=== PATIENT | female | born 1955 | race Caucasian/White ===

== ENCOUNTER 2022-11-14 20:21 | Outpatient (CLI) | payer OTHER, SELFPAY | END 2022-11-14 20:22 | disposition home or self-care (01) | PROVIDERS: PCP Physician Assistant; Visit Provider Family Medicine | DX: R41.82 Altered mental status, unspecified (principal) | CPT/HCPCS: A0425; A0427 ==

== ENCOUNTER 2023-07-27 12:55 | Emergency (ER) | payer OTHER, SELFPAY ==
[2023-07-27 13:01] VITALS: BP 174/86; PULSE 103; RESP 18; TEMP 37.3; O2SAT 97; BMI 20.7
[2023-07-27 13:43] LABS: Appearance Urine Clear (Clear); Bilirubin Urine Negative (Negative); Blood Urine Negative (Negative); Color Urine Yellow (Yellow); Glucose Urine Negative (Negative); Ketones Urine Negative (Negative); Leukocyte Esterase Urine Negative (Negative); Nitrite Urine Negative (Negative); Protein Urine Negative (Negative); Urobilinogen Urine 0.2 (0.2-1.0)
[2023-07-27 14:03] LABS: RBC Urine 0-2 (0-2); WBC Urine 0-2 (0-5)
--- NOTE | 2023-07-27 14:45 | CRLHL7_ITS ---
For Patients: As a result of the Century Cures Act, medical imaging exams and procedure reports are released immediately into your electronic medical record. You may view this report before your referring provider. If you have questions, please contact your health care provider. INDICATION: Periumbilical with right lower quadrant pain. History of and bilateral hernia repair. TECHNIQUE: CT of the abdomen and pelvis with 57 cc Isovue 370 IV contrast. Coronal and sagittal reconstructions. COMPARISON: None. FINDINGS: The liver, gallbladder, spleen, and adrenal glands are negative. No biliary dilation. Mild prominence of the pancreatic duct. The pancreas is otherwise unremarkable. Hepatic and portal veins are patent. Symmetric enhancement of the kidneys. Bilateral renal cortical scarring. Subcentimeter bilateral renal hypodensities are too small to characterize. Prominent bilateral extrarenal pelves. No hydronephrosis or ureteral dilation. No obstructing urinary calculi identified. The bladder is normal in appearance. Uterus is unremarkable. There is a 2.1 cm cystic lesion in the left adnexa (series 2, image 93). Wall thickening of the gastric antrum is likely inflammatory. No small bowel dilation. Large amount of stool throughout the colon. Segmentally visualized negative appendix (series 2, image 105). No intraperitoneal free air or fluid. No lymphadenopathy. Aortoiliac vascular calcifications. Left convex lumbar curve. Degenerative changes of the spine. Chronic appearing inferior endplate compression fracture of L1. Subacute fractures of the right posterior 9th-12th ribs with callus formation. Subacute fracture of the right anterior 6th rib. Additional old bilateral rib fractures. Old bilateral pubic rami fractures. Acute appearing nondisplaced fracture of the right T9 transverse process. The lung bases are clear. IMPRESSION: 1. Multiple subacute right rib fractures. 2. Acute appearing nondisplaced fracture of the right T9 transverse process 3. Large amount of stool. Segmentally visualized negative appendix. 4. Wall thickening of the gastric antrum is likely inflammatory. 5. 2.1 cm left adnexal cyst. Please note that all CT scans at this facility use dose modulation, iterative reconstruction, and/or weight-based dosing when appropriate to reduce radiation dose to as low as reasonably achievable. Dictated by Rajwinder Fernandes MD @ 07/27/2023 6:06:08 PM (Electronically Signed)
--- OUTSIDE RECORDS SUMMARY | 2023-07-27 14:59 | XMS_ITS | Continuity of Care Document ---
Author Name Unknown Organization [facility] Address [address] [place] [address] Phone Care Team Providers Care Systems Administration Analyst Name Role Phone Kimberly CONCEPCIONAriel Unavailable Unavailable Allergies, Adverse Reactions, Alerts Substance Reaction Status Criticality No Known Allergies Active No Inform ation Medications Medication Instructions Dosage Effective Dates (start - stop) Status Comments furosemide 20 mg tablet Take 1 Tablet (2 0 mg) by mouth once daily if needed (peripheral edema). - Active butalbital-acetaminophe n-caffeine 50 mg-325 mg-40 mg tablet Take 1 Tablet by mouth every 4 hours if needed for Headache. Max 6 doses per day. Max acetaminophen dose 4000mg in 24 hrs. - Active trazodone 100 mg tablet Take 1 Tablet (1 00 mg) by mouth at bedtime. - Active ondansetron [address] 1 Tablet (4 mg) on the tongue every 8 hours if needed for Nausea/Vomiting. - Active atorvastatin 10 mg tablet Take 1 Tablet (10 mg) by mouth at bedtime. - Active buspirone 10 mg tablet Take 1 Tablet (10 mg) by mouth 2 times daily. - Active Poly-Vi-Faye with Iron 11 mg iron/mL oral drops Take 1 Tablet (325 mg) by mouth once daily with a meal. - Active fluoxetine 20 mg capsule Take 1 Capsule (20 mg) by mouth every morning. - Active fluticasone propionate 50 mcg/actuation nasal spray,suspension Inhale 1 [place] to both nostrils once daily. - Active lisinopril 20 mg tablet Take 1 Tablet (2 0 mg) by mouth once daily. - Active loratadine 10 mg tablet Take 1 Tablet (1 0 mg) by mouth once daily. - Active montelukast 10 mg tablet Take 1 Tablet (10 mg) by mouth at bedtime. - Active sumatriptan 100 mg tablet Take 1 Tablet (100 mg) by mouth every 2 hours if needed for Migraine. Give at minimum 2hrs apart. Max Dose: 200mg per 24hrs. - Active topiramate 100 mg tablet Take 1 Tablet (100 mg) by mouth 2 times daily. - Active Stimulant Laxative Plus 8.6 mg-50 mg tablet Take 1 Tablet by mouth 2 times daily if needed for Constipation. - Active Restasis 0.05 % eye drops in a dropperette Place 1 Drop into both eyes 2 times daily. - Active MS Contin 30 mg tablet,extended release take 1 tablet by oral route every 12 hours 30 MG - Active oxycodone 10 mg tablet take 1 tablet by oral route every 20 - 24 hours 10 MG - Active Procedures Procedure Date OFFICE/OUTPATIENT VISIT, EST OFFICE/OUTPATIENT VISIT, EST Drug Urine Toxology With Chromatography Drug test def 1-7 classes OFFICE/OUTPATIENT VISIT, NEW PT-FOCUSED HLTH RISK ASSMT Advance Directives Directive Yes / No Effective Date File Name No Information Encounters Encounter Description Practice Location Reason(s) For Visit Diagnoses Date Provider Providers Copied on Encounter [facility], [address] [place], [id number] , [place] tel:[phone] [facility] [place] No Information 2 Kimberly George. [facility], [place], [id number] , [place]. tel: [phone] OFFICE/OUTPA TIENT VISIT, EST [facility], [address] [place], [place], [id number] , [place] tel: [phone] [facility] Back Pain (chief complaint) Chronic pain syndromeOther intervertebral disc degeneration, lumbar regionRadiculopathy , cervical regionRadiculopathy of lumbar regionOsteoporosisO ther nursing home (current) drug therapy 2 Kimberly George. [address] [place] [address] [address], [place], [place], [id number] , [place]. tel: [phone] Referring Provider: Keeley Garvey, [address], [address]. tel:[phone] [facility], [address] [place], [place], [id number] , [place] tel: [phone] [facility] No Information 2 Kimberly George. [address] [place] [address] [address], [place], [place], [id number] , [place]. tel: [phone] OFFICE/OUTPA TIENT VISIT, [facility], [address] [place] [address], [id number] , [place] tel: [phone] [facility] Back Pain (chief complaint) Chronic pain syndromeRadiculopat hy of lumbar regionOther adjunct faculty for medical terminology (current) drug therapyRadiculopath y, cervical regionOther intervertebral disc degeneration, lumbar regionOsteoporosis 2 Kimberly George. [address] [place] [address] [address], [place], [place], [id number] , [place]. tel: [phone] Referring Provider: Keeley Garvey, [address], [address]. tel:[phone] [facility], [address] [place], [place], [id number] , [place] tel: [phone] [facility] No Information 2 Kimberly George. [address] [place] [address] [address] [facility] [address], [place], [id number] , [place]. tel: [phone] Referring Provider: Gerry Burden, [address] [place], [address] . tel:[phone] OFFICE/OUTPA TIENT VISIT, [facility], [address] [place], [id number] , [place] tel: [phone] [facility] [place] Back Pain (chief complaint) Chronic pain syndromeOther adjunct faculty for medical terminology (current) drug therapyEncounter for therapeutic drug level monitoringEncounter for screening for other disorderRadiculopat hy of lumbar regionRadiculopathy , cervical regionOther intervertebral disc degeneration, lumbar regionOsteoporosis 2 Kimberly George. [address] [place] [address] [address] [facility] [address], [place], [id number] , [place]. tel: [phone] Referring Provider: Keeley Garvey, [address], [address]. tel:[phone] Family History Family Member Type Diagnosis Age At Onset Problem Family history of Arthritis Payers Payer name Insurance type Covered green party ID Authoriza lamont(s) [employer] Medicare PPO Replacement 16 [id number] Social History Type Description Quantity Date Captured Comments Sex Female Smoking Status No Information Chief Complaint And Reason For Visit No Information Reason For Referral Reason For Referral No Information Plan Of Treatment Date Type Action Status Goal Zoster vaccine ( 1st). Due on due Goal Unhealthy drug u se screening. Due on due Goal Lipid panel. Due on 022 due Goal Hepatitis C scre ening. Due on due Goal FIT-DNA. Due on due Goal FIT. Due on due Goal CT-Colonography. Due on due Goal PHQ-9. Due on du e Goal Weight. Due on d ue Goal Tobacco Use. Due on due Goal Height. Due on d ue Goal Update Social Hi story. Due on due Goal Review Allergy L ist. Due on due Goal Medication Recon ciliation. Due on due Goal Height. Due on d ue Goal Tobacco Use. Due on due Goal Review Allergy L ist. Due on due Goal Weight. Due on d ue Goal Medication Recon ciliation. Due on due Goal Update Social Hi story. Due on due Goal PHQ-9. Due on du e Goal Update Social Hi story. Due on due Goal PHQ-9. Due on du e Goal Medication Recon ciliation. Due on due Goal Weight. Due on d ue Goal Height. Due on d ue Goal Tobacco Use. Due on due Goal Review Allergy L ist. Due on due Goal Medication Recon ciliation. Due on due Goal Weight. Due on d ue Goal Height. Due on d ue Goal Tobacco Use. Due on 022 due Goal Review Allergy L ist. Due on due Goal PHQ-9. Due on du e Goal Update Social Hi story. Due on due Appointment Reshma Field SEE DETAILS RONNELL KC Future Order: Radiology Order MR Lumbar WO ([id number]), Ordered on: Ordered Future Order: Radiology Order MR Cervical WO ([id number]), Ordered on: Ordered History Of Present Illness Encounter Date Complaint History Of Prese nt Illness Comments: Reshma presents for follow-up regarding lower back pain. Reports secondary neck pain that is currently most bothersome. Reports pain has been fluctuating since [place]. Notes some radiation into R leg with associated leg swelling. Interested in updating cervical and lumbar MRIs.Of note, she is currently her 's primary caregiver, which causes stress.Patient states she is currently managing her pain on oxycodone 10mg BID PRN and morphine ER 30mg BID, prescribed and managed by Keeley JAVIER.Continues to utilize medical cannabis with 60% pain relief. She is not accompanied and has no other concerns today. Back Pain Severity level i s 6. Duration: chronic. The problem is fluctuating. It occurs persistently. The client describes the pain as an ache, burning and tingling. Symptoms are aggravated by ascending stairs, bending, descending stairs, sitting, standing, walking, prolonged positioning and housework. Symptoms are relieved by heat, ice, massage, pain meds/drugs, stretching, rest, changing positions, TENS and walking. Back Pain Duration: chroni c. The problem is stable. It occurs persistently. Location of pain is lower back.The patient describes the pain as an ache, burning and sharp. Symptoms are aggravated by bending, lifting, standing, twisting, walking, movement, housework and prolonged positioning. Symptoms are relieved by pain meds/drugs and rest. Back Pain (comments) Reshma prese nts for initial follow-up regarding lower back pain. States pain has been unchanged in location, quality, and character since initial consult. Presents primarily to discuss medical cannabis certification. She states she has not heard from the MD. Patient states she is currently managing her pain on oxycodone 15mg TID, prescribed and managed by Keeley JAVIER. Inquires about recommendations regarding a long-acting opiate as OxyContin is too expensive. She is not accompanied and has no other concerns today. Back Pain Severity level i s 8. Duration: chronic. Location of pain is lower back and neck.The patient describes the pain as an ache, deep, sharp and throbbing. Symptoms are aggravated by ascending stairs, bending, descending stairs, lifting, lying/rest, running, sitting, standing, twisting, movement, housework and prolonged positioning. Symptoms are relieved by heat, lying down, massage, pain meds/drugs, physical therapy, stretching, sitting, standing, walking and TENS. Back Pain (comments) Reshma is he re for initial consult for neck and back pain. She is referred by Keeley JAVIER through [facility]. The patient is a 66y/o female who presents with chronic neck and back pain for the past 25+ years. Denies inciting injury or past surgeries. Pain is described as aching, deep, sharp, and throbbing. Pain averages 8/10. The patient is currently managed on Morphine 30mg ID and oxycodone 10mg 1tab/day with moderate benefit.Patient is interested in pain management options through [facility]. Specifically expresses interest in medical cannabis certification. She is not accompanied and has no other concerns today. Functional Status Date Functional Assessmen t No Information Instructions Date Instruction Additional Infor mation No Information Assessments Type Assessment Date No Information Patient Care Teams Name Effective Dates (start - stop) Status Members No Information
--- OUTSIDE RECORDS SUMMARY | 2023-07-27 15:01 | XMS_ITS | Continuity of Care Document ---
Author Name Unknown Organization [facility] Address [address] [place] [address] Phone Care Team Providers Care Project Architect Name Role Phone Kimberly CONCEPCIONAriel Unavailable Unavailable [...] propionate 50 mcg/actuation nasal spray,suspension Inhale 1 [place] to both nostrils once daily. - Active [...] Diagnoses Date Provider Providers Copied on Encounter [facility], [address] [facility] [place], [id number] , [place] tel:[phone] [facility] [place] No Information 2 Kimberly George. [facility] [facility] [address], [place], [id number] , [place]. tel: [phone] OFFICE/OUTPA TIENT VISIT, EST [facility], [address] [place], [place], [id number] , [place] tel: [phone] [facility] Back Pain (chief complaint) Chronic pain syndromeOther intervertebral disc degeneration, lumbar regionRadiculopathy , cervical regionRadiculopathy of lumbar regionOsteoporosisO ther custodial (current) drug therapy 2 Kimberly George. [address] [place] [address] [address], [place], [place], [id number] , [place]. tel: [phone] Referring Provider: eKeley Garvey, [address], [address]. tel:[phone] [facility], [address] [place], [place], [id number] , [place] tel: [phone] [facility] No Information 2 Kimberly George. [address] [place] [address] [address], [place], [place], [id number] , [place]. tel: [phone] OFFICE/OUTPA TIENT VISIT, [facility], [address] [place] [address], [id number] , [place] tel: [phone] [facility] Back Pain (chief complaint) Chronic pain syndromeRadiculopat hy of lumbar regionOther intermission coordinator (current) drug therapyRadiculopath y, cervical regionOther intervertebral disc degeneration, lumbar regionOsteoporosis 2 Kimberly George. [address] [place] [address] [address], [place], [place], [id number] , [place]. tel: [phone] Referring Provider: Keeley Garvey, [address], [address]. tel:[phone] [facility], [address] [place], [place], [id number] , [place] tel: [phone] [facility] No Information 2 Kimberly George. [address] [place] [address] [address] [facility] [address], [place], [id number] , [place]. tel: [phone] Referring Provider: Gerry Burden, [address] [place], [address] . tel:[phone] OFFICE/OUTPA TIENT VISIT, [facility], [address] [place] [address] [place], [place], [id number] , [place] tel: [phone] [facility] [place] Back Pain (chief complaint) Chronic pain syndromeOther intermission coordinator (current) drug therapyEncounter for therapeutic drug level monitoringEncounter for screening for other disorderRadiculopat hy of lumbar regionRadiculopathy , cervical regionOther intervertebral disc degeneration, lumbar regionOsteoporosis 2 Kimberly George. [address] [place] [address] [address] [facility] [address], [place], [id number] , [place]. tel: [phone] Referring Provider: Keeley Garvey, [address], [address]. tel:[phone] Family History Family Member Type Diagnosis Age At Onset Problem Family history of Arthritis Payers Payer name Insurance type Covered democrat ID Authorzacka samirsasha(s) [employer] Medicare PPO Replacement 16 [id number] Social History Type Description Quantity Date Captured Comments Sex Female Smoking Status No Information Chief Complaint And Reason For Visit No Information Reason For Referral Reason For Referral No Information Plan Of Treatment Date Type Action Status Goal Medication Recon ciliation. Due on due Goal Review Allergy L ist. Due on due Goal Update Social Hi story. Due on due Goal Height. Due on d ue Goal Tobacco Use. Due on 022 due Goal Weight. Due on d ue Goal PHQ-9. Due on du e Goal CT-Colonography. Due on due Goal FIT. Due on due Goal FIT-DNA. Due on due Goal Hepatitis C scre ening. Due on due Goal Lipid panel. Due on due Goal Unhealthy drug u se screening. Due on due Goal Zoster vaccine ( ). Due on due Goal PHQ-9. Due on du e Goal Update Social Hi story. Due on due Goal Medication Recon ciliation. Due on due Goal Weight. Due on d ue Goal Height. Due on d ue Goal Tobacco Use. Due on due Goal Review Allergy L ist. Due on due Goal PHQ-9. Due on du e Goal Update Social Hi story. Due on due Goal Medication Recon ciliation. [...] Date Complaint History Of Prese nt Illness Back Pain Severity level i s 6. Duration: chronic. The problem is fluctuating. It occurs persistently. The client describes the pain as an ache, burning and tingling. Symptoms are aggravated by ascending stairs, bending, descending stairs, sitting, standing, walking, prolonged positioning and housework. Symptoms are relieved by heat, ice, massage, pain meds/drugs, stretching, rest, changing positions, TENS and walking. Comments: Reshma presents for follow-up regarding lower [...] 30mg BID, prescribed and managed by Keeley [place] PAC.Continues to utilize medical cannabis with 60% pain relief. She is not accompanied and has no other concerns today. Back Pain (comments) Reshma prestameka nts for initial follow-up regarding lower back pain. States pain has been unchanged in location, quality, and character since initial consult. Presents primarily to discuss medical cannabis certification. She states she has not heard from the [facility]. Patient states she is currently managing her pain on oxycodone 15mg TID, prescribed and managed by Keeley [place] PAC. Inquires about recommendations regarding a long-acting opiate as OxyContin is too expensive. She is not accompanied and has no other concerns today. Back Pain Duration: chroni c. The problem is stable. It occurs persistently. Location of pain is lower back.The patient describes the pain as an ache, burning and sharp. Symptoms are aggravated by bending, lifting, standing, twisting, walking, movement, housework and prolonged positioning. Symptoms are relieved by pain meds/drugs and rest. Back Pain Severity level i s 8. [...] She is referred by Keeley JAVIER through [facility]. The patient is a 66y/o female who presents with chronic neck and back pain for the past 25+ years. Denies inciting injury or past surgeries. Pain is described as aching, deep, sharp, and throbbing. Pain averages 8/10. The patient is currently managed on Morphine 30mg ID and oxycodone 10mg 1tab/day with moderate benefit.Patient is interested in pain management options through [facility]. Specifically expresses interest in medical cannabis certification. She is not accompanied and has no other concerns today. Functional Status Date Functional Assessmen t No Information Instructions Date Instruction Additional Infor mation No Information Assessments Type Assessment Date No Information Patient Care Teams Name Effective Dates (start - stop) Status Members No Information
[2023-07-27 15:18] LABS: Basophils Percent Auto 0.2 % (0.0-3.0); Eosinophils Percent Auto 0.2 % (0.0-7.0); Hematocrit 45.8 % (33.0-51.0); Hemoglobin* 15.2 gm/dL (12.0-16.0); Lymphocytes Percent Auto 17.5 % (20-44); Mean Corpuscular HGB Conc 33 gm/dL (32-36); Mean Corpuscular Hemoglobin 30 pg (26-34); Mean Corpuscular Volume 89 fL (80-100); Monocytes Percent Auto 9.1 % (0.0-11.0); Platelet Count* 481 K/uL (140-440); Red Blood Count 5.15 m/uL (4.00-5.20)
[2023-07-27] MEDS: 0.9 % SODIUM CHLORIDE 1000 ml 1,000 ML IV (15:18)
[2023-07-27] MEDS: MORPHINE 4 MG/ML INJ IM (15:18)
[2023-07-27] MEDS: ONDANSETRON 2 MG/ML inj 4 MG IVP (15:18)
[2023-07-27 15:22] LABS: Slide Review Reflex No
[2023-07-27 15:24] VITALS: BP 156/91; PULSE 88; RESP 14; O2SAT 99
[2023-07-27 15:24] LABS: Albumin* 4.6 g/dL (3.3-5.0)
[2023-07-27 15:25] LABS: Chloride* 95 mmol/L (96-114); Potassium* 3.2 mmol/L (3.6-5.1); Sodium* 136 mmol/L (135-149)
[2023-07-27 15:27] LABS: Alkaline Phosphatase* 78 U/L (40-150); Anion Gap 11 mEq/L (7-15); Aspartate Amino Transferase* 23 U/L (12-35); Bilirubin Total* 0.4 mg/dL (0.1-1.5); Blood Urea Nitrogen* 20 mg/dL (7-30); Carbon Dioxide* 30 mmol/L (20-32); Est. Creatinine Clearance* 43.92; Estimated Glomerular Filt Rate 61 ml/min
[2023-07-27 15:28] LABS: Alanine Aminotransferase* 24 U/L (4-35); Calcium* 9.9 mg/dL (8.4-10.6); Glucose* 96 mg/dL (60-115); Lipase* 103 U/L (23-300)
--- NOTE | 2023-07-27 15:38 | ED_ITS ---
HPI - General Adult General Date Seen: 07/27/23 Chief complaint: Abdominal Pain Stated complaint: Lower abdominal pain Time Seen by Provider: 07/27/23 14:37 Source: patient Mode of arrival: ambulatory Limitations: no limitations History of Present Illness HPI narrative: Patient is 68 year female presenting to emergency department for abdominal pain. She states she has been having periumbilical pain for the past week that has been gradually radiate into her right lower quadrant. Denies ever having pain like this before. Denies fevers or chills. Has had some nausea and has not been he to drink much due to the associated pain. Has had bilateral hernia repairs before in C sections but still has a gallbladder and appendix. Denies any vaginal bleeding or vaginal discharge. No dysuria. Denies chest pain, shortness of breath, weakness, numbness, diarrhea, constipation. States she has a bowel movement every single day and they have been mostly normal. No other concerns at this time. Related Data Home Medications Medication Instructions Recorded Confirmed atorvastatin 10 mg tablet 10 mg PO DAILY 07/27/23 07/27/23 [id number] 1 tab PO Q4H PRN headache 07/27/23 07/27/23 50 mg-325 mg-40 mg tablet eszopiclone 3 mg tablet 3 mg PO QPM PRN 07/27/23 07/27/23 ferrous sulfate 325 mg (65 mg 325 mg PO DAILY 07/27/23 07/27/23 iron) tablet,delayed release fluoxetine 40 mg capsule 40 mg PO DAILY 07/27/23 07/27/23 fluticasone propionate 50 1 spray intranasal DAILY 07/27/23 07/27/23 mcg/actuation nasal spray,suspension hydrochlorothiazide 12.5 mg tablet 12.5 mg PO DAILY 07/27/23 07/27/23 loratadine 10 mg tablet 10 mg PO DAILY 07/27/23 07/27/23 methocarbamol 500 mg tablet 500 mg PO muscle spasm 07/27/23 montelukast 10 mg tablet 10 mg PO DAILY 07/27/23 07/27/23 morphine 30 mg tablet,extended 30 mg PO BID PRN 07/27/23 07/27/23 release oxycodone 10 mg tablet 10 mg PO BID pain 07/27/23 07/27/23 potassium chloride 20 mEq 20 meq PO DAILY 07/27/23 07/27/23 tablet,extended release sumatriptan succinate 100 mg tablet mg PO 07/27/23 topiramate 100 mg tablet 100 mg PO BID 07/27/23 07/27/23 triamcinolone acetonide 0.1 % topical 07/27/23 topical ointment Previous Rx's Medication Instructions Recorded docusate sodium 100 mg capsule 100 mg PO BID #14 caps 07/27/23 (Colace) polyethylene glycol 3350 17 17 g PO BID #119 grams 07/27/23 gram/dose oral powder (Miralax) sennosides 8.6 mg capsule (senna) 17.2 mg (2 x 8.6 mg) PO BID #20 07/27/23 caps Allergies Allergy/AdvReac Type Severity Reaction Status Date / Time cefuroxime Allergy Mild Rash Verified 07/27/23 13:20 Review of Systems Status of ROS: Reports: 10 or more systems reviewed and unremarkable except as noted in History and below [facility] Social History Smoking Status: Never smoker How often do you have a drink containing alcohol: never AUDIT-C Alcohol total score: 0 Non-prescribed substance use: denies use Exam Narrative: Exam Narrative: Const: Well-nourished, Well-developed, in mild distress Eyes: PERRL, no conjunctival injection, and symmetrical lids ENMT: Atraumatic external nose and ears. Moist mucous membranes. Neck: Symmetric, trachea midline, No thyromegaly. CVS: RRR, No murmurs or gallops. Peripheral pulses 2+ and equal in all extremities RESP: Unlabored respiratory effort. Clear to auscultation bilaterally. GI: Bilateral lower quadrant tenderness. No rebound or guarding. MSK:Extremities w/o deformity, Normal Active ROM Skin: Warm, Dry. No rashes or lesions. Neuro: Normal Muscle tone, No focal neurological deficits. Psych: Awake, Alert, & Oriented x3. Appropriate mood and affect. Const: Vital Signs, click to edit/add: Vital Signs - 24 hr 07/27/23 13:01 07/27/23 15:24 07/27/23 16:35 Temperature 99.1 F Pulse Rate 88 79 Pulse Rate [Right Pulse Oximeter] 103 H Respiratory Rate 18 14 14 Blood Pressure 156/91 H 141/89 H Blood Pressure [Ri ght Upper Arm] 174/86 H Pulse Oximetry 97 99 98 Oxygen Delivery Me thod Room Air 07/27/23 17:30 07/27/23 18:30 Temperature Pulse Rate 80 92 Pulse Rate [Right Pulse Oximeter] Respiratory Rate 12 Blood Pressure 131/74 Blood Pressure [Ri ght Upper Arm] Pulse Oximetry 95 97 Oxygen Delivery Me thod Course Vital Signs Vital signs: Initial Vital Signs Temperature 99.1 F 07/27/23 13:01 Temperature Source Temporal Artery Scan 07/27/23 13:01 Pulse Rate 103 H 07/27/23 13:01 Respiratory Rate 18 07/27/23 13:01 Blood Pressure 174/86 H 07/27/23 13:01 Blood Pressure Mean 115 H 07/27/23 13:01 Blood Pressure Position Sitting 07/27/23 13:01 Pulse Oximetry 97 07/27/23 13:01 Oxygen Delivery Method Room Air 07/27/23 13:01 Vital Signs Temperature 99.1 F 07/27/23 13:01 Pulse Rate 103 H 07/27/23 13:01 Respiratory Rate 18 07/27/23 13:01 Blood Pressure 174/86 H 07/27/23 13:01 Pulse Oximetry 97 07/27/23 13:01 Oxygen Delivery Method Room Air 07/27/23 13:01 Temperature 99.1 F 07/27/23 13:01 Pulse Rate 92 07/27/23 18:30 Respiratory Rate 12 07/27/23 17:30 Blood Pressure 131/74 07/27/23 17:30 Pulse Oximetry 97 07/27/23 18:30 Oxygen Delivery Method Room Air 07/27/23 13:01 Medical Decision Making [facility] Narrative Medical decision making narrative: Patient is a 68-year-old female presenting to emergency department for 1 week periumbilical abdominal pain that radiates her right lower quadrant. She states she has been having normal bowel movements pannus had some nausea. States she does currently feel mildly nauseated. She has had previous abdominal surgeries so small bowel obstruction is on the differential. Could also be appendicitis, gastritis, cholecystitis. CT scan IV contrast was ordered. Morphine given for pain. Patient given 1 L of normal saline. CBC, CMP, urinalysis, lipase were all ordered. COVID/flu was also ordered. White blood cell came back at 12.2. She now meets SIRS criteria with a white count and her initial tachycardia. Lactate and blood cultures were ordered. Lactate was 0.8. She has not appear to be septic at this time. She does not require more fluids patient's CT returned showing large stool burden. There is no stool ball blocking her rectum. The also sees several subacute to acute ribs and spinal fractures. She is not complaining about any pain in those regions at this time and believe these are more likely to be old. She is on chronic pain medication. She states she used to be on a motility agent but was stopped on it several years ago. Her symptoms are likely from constipation and can be safely discharged home. She was given a constipation regimen does told to follow-up with her primary care provider. She is agreeable to this plan. Lab Data Labs: Lab Results 07/27/23 07/27/23 07/27/23 Range/Units 13:11 15:05 16:44 WBC 12.20 H (4.50-11.00) K/uL RBC 5.15 (4.00-5.20) m/uL Hgb 15.2 (12.0-16.0) gm/dL Hct 45.8 (33.0-51.0) % MCV 89 (80-100) fL MCH 30 (26-34) pg MCHC 33 (32-36) gm/dL RDW Coeff of Jim 13.0 (11.5-15.5) % Plt Count 481 H (140-440) K/uL Neut % (Auto) 72.0 (42.0-72.0) % Lymph % (Auto) 17.5 L (20-44) % Emanuel % (Auto) 9.1 (0.0-11.0) % Eos % (Auto) 0.2 (0.0-7.0) % Baso % (Auto) 0.2 (0.0-3.0) % Neut # (Auto) 8.80 H (1.7-7.0) K/uL Lymph # (Auto) 2.10 (0.90-2.90) K/uL Emanuel # (Auto) 1.10 H (0.00-0.90) K/UL Eos # (Auto) 0.00 (0.00-0.50) K/uL Baso # (Auto) 0.00 (0.00-0.30) K/uL Abs Immat Gran (auto) 0.10 (0.00-0.30) K/uL Imm/Tot Granulo (auto) 1.0 % Sodium 136 (135-149) mmol/L Potassium 3.2 L (3.6-5.1) mmol/L Chloride 95 L (96-114) mmol/L Carbon Dioxide 30 (20-32) mmol/L Anion Gap 11 (7-15) mEq/L BUN 20 (7-30) mg/dL Creatinine 1.0 (0.5-1.5) mg/dL Estimated Creat Clear 43.92 Estimated GFR 61 ml/min Glucose 96 (60-115) mg/dL Lactate 0.8 (0.5-1.9) mmol/L Calcium 9.9 (8.4-10.6) mg/dL Total Bilirubin 0.4 (0.1-1.5) mg/dL AST 23 (12-35) U/L ALT 24 (4-35) U/L Alkaline Phosphatase 78 (40-150) U/L Total Protein 8.0 (6.0-8.3) g/dL Albumin 4.6 (3.3-5.0) g/dL Lipase 103 (23-300) U/L Urine Color Yellow (Yellow) Urine Appearance Clear (Clear) Urine pH 6.0 (5.0-8.5) Ur Specific [place] 1.010 (1.000-1.030) Urine Protein Negative (Negative) Urine Glucose (UA) Negative (Negative) Urine Ketones Negative (Negative) Urine Blood Negative (Negative) Urine Nitrite Negative (Negative) Urine Bilirubin Negative (Negative) Urine Urobilinogen 0.2 (0.2-1.0) Ur Leukocyte Esterase Negative (Negative) Urine RBC 0-2 (0-2) Urine WBC 0-2 (0-5) Ur Squamous Epith Cells None (None-Few) Urine Bacteria None (None) SARS-CoV-2 (PCR) Negative SARS-CoV-2 (Negative) Influenza Type A (PCR) Negative PCR FLU A (Negative) Influenza Type B (PCR) Negative PCR FLU B (Negative) Lab Acknowledgement 07/27/23 Range/Units 16:50 WBC (4.50-11.00) K/uL RBC (4.00-5.20) m/uL Hgb (12.0-16.0) gm/dL Hct (33.0-51.0) % MCV (80-100) fL MCH (26-34) pg MCHC (32-36) gm/dL RDW Coeff of Jim (11.5-15.5) % Plt Count (140-440) K/uL Neut % (Auto) (42.0-72.0) % Lymph % (Auto) (20-44) % Emanuel % (Auto) (0.0-11.0) % Eos % (Auto) (0.0-7.0) % Baso % (Auto) (0.0-3.0) % Neut # (Auto) (1.7-7.0) K/uL Lymph # (Auto) (0.90-2.90) K/uL Emanuel # (Auto) (0.00-0.90) K/UL Eos # (Auto) (0.00-0.50) K/uL Baso # (Auto) (0.00-0.30) K/uL Abs Immat Gran (auto) (0.00-0.30) K/uL Imm/Tot Granulo (auto) % Sodium (135-149) mmol/L Potassium (3.6-5.1) mmol/L Chloride (96-114) mmol/L Carbon Dioxide (20-32) mmol/L Anion Gap (7-15) mEq/L BUN (7-30) mg/dL Creatinine (0.5-1.5) mg/dL Estimated Creat Clear Estimated GFR ml/min Glucose (60-115) mg/dL Lactate (0.5-1.9) mmol/L Calcium (8.4-10.6) mg/dL Total Bilirubin (0.1-1.5) mg/dL AST (12-35) U/L ALT (4-35) U/L Alkaline Phosphatase (40-150) U/L Total Protein (6.0-8.3) g/dL Albumin (3.3-5.0) g/dL Lipase (23-300) U/L Urine Color (Yellow) Urine Appearance (Clear) Urine pH (5.0-8.5) Ur Specific [place] (1.000-1.030) Urine Protein (Negative) Urine Glucose (UA) (Negative) Urine Ketones (Negative) Urine Blood (Negative) Urine Nitrite (Negative) Urine Bilirubin (Negative) Urine Urobilinogen (0.2-1.0) Ur Leukocyte Esterase (Negative) Urine RBC (0-2) Urine WBC (0-5) Ur Squamous Epith Cells (None-Few) Urine Bacteria (None) SARS-CoV-2 (PCR) (Negative) Influenza Type A (PCR) (Negative) Influenza Type B (PCR) (Negative) Lab Acknowledgement Test Added Discharge Plan Discharge Clinical Impression: Constipation Patient Disposition: Home, Self-Care Condition: Stable Instructions: Constipation (DC) Additional Instructions: Follow-up with the primary care provider about to constipation. Is likely secondary to your narcotic prescriptions. Take the prescriptions as prescribed. Prescriptions: New docusate sodium [Colace] 100 mg capsule 100 mg PO BID Qty: 14 0RF senna 8.6 mg capsule 17.2 mg PO BID Qty: 20 0RF polyethylene glycol 3350 [Miralax] 17 gram/dose powder 17 g PO BID Qty: 119 0RF No Action fluoxetine 40 mg capsule 40 mg PO DAILY methocarbamol 500 mg tablet 500 mg PO atorvastatin 10 mg tablet 10 mg PO DAILY sumatriptan succinate 100 mg tablet PO morphine 30 mg tablet extended release 30 mg PO BID PRN [id number] 50-325-40 mg tablet 1 tab PO Q4H PRN (Reason: headache) triamcinolone acetonide 0.1 % ointment topical montelukast 10 mg tablet 10 mg PO DAILY ferrous sulfate 325 mg (65 mg iron) tablet,delayed release (DR/EC) 325 mg PO DAILY topiramate 100 mg tablet 100 mg PO BID fluticasone propionate 50 mcg/actuation spray,suspension 1 spray INTRANASAL DAILY loratadine 10 mg tablet 10 mg PO DAILY eszopiclone 3 mg tablet 3 mg PO QPM PRN hydrochlorothiazide 12.5 mg tablet 12.5 mg PO DAILY oxycodone 10 mg tablet 10 mg PO BID potassium chloride 20 mEq tablet extended release 20 meq PO DAILY Follow Up/Referrals: Keeley Garvey PA-C [Primary Care Provider] - Stand Alone Forms: [facility] Info Instructions
[2023-07-27 15:49] LABS: PCR FLU A Negative PCR FLU A (Negative); PCR FLU B Negative PCR FLU B (Negative)
[2023-07-27] MEDS: POTASSIUM CHLORIDE 10 MEQ CAPSULE ER 40 MEQ PO (16:02)
[2023-07-27 16:10] LABS: SARS PCR* Negative SARS-CoV-2 (Negative)
[2023-07-27 16:35] VITALS: BP 141/89; PULSE 79; RESP 14; O2SAT 98
[2023-07-27 16:52] LABS: Lactate* 0.8 mmol/L (0.5-1.9)
[2023-07-27 17:30] VITALS: BP 131/74; PULSE 80; RESP 12; O2SAT 95
[2023-07-27] MEDS: MORPHINE 4 MG/ML INJ IVP (17:33)
[2023-07-27 18:30] VITALS: PULSE 92; O2SAT 97
== END 2023-07-27 18:55 | disposition home or self-care (01) ==
PROVIDERS: Emergency Provider Student in an Organized Health Care Education/Training Program; PCP Physician Assistant
DX: K59.00 Constipation, unspecified (principal)
CPT/HCPCS: 36415; 74177; 80053; 81001; 83605; 83690; 85025; 87040; 87631; 96372; 96374; 96375; 99283; 99284; A9270; J2270; J2405; J7030; Q9967

== ENCOUNTER 2025-05-23 14:45 | Outpatient (CLI) | payer MEDICARE, SELFPAY | END 2025-05-23 14:46 | disposition home or self-care (01) | PROVIDERS: PCP Physician Assistant; Visit Provider Family Medicine | DX: S81.822A Laceration with foreign body, left lower leg, initial encounter (principal); S80.12XA Contusion of left lower leg, initial encounter; L03.116 Cellulitis of left lower limb; W01.198A Fall on same level from slipping, tripping and stumbling with subsequent striking against other object, initial encounter; Y93.89 Activity, other specified; Y92.821 Forest as the place of occurrence of the external cause; N18.30 Chronic kidney disease, stage 3 unspecified; G89.29 Other chronic pain; Z86.19 Personal history of other infectious and parasitic diseases | CPT/HCPCS: 1123F; 87070; 97597; 99205; G0463 ==

== ENCOUNTER 2025-05-26 09:03 | Outpatient (CLI) | payer MEDICARE, SELFPAY ==
[2025-05-26 10:27] LABS: Hematocrit 41.1 % (33.0-51.0); Hemoglobin* 13.4 gm/dL (12.0-16.0); Immature Granulocytes Abs Auto 0.04 K/uL (0.00-0.30); Immature Granulocytes Pct Auto 0.4 %; Mean Corpuscular HGB Conc 33 gm/dL (32-36); Mean Corpuscular Hemoglobin 33 pg (26-34); Mean Corpuscular Volume 103 fL (80-100); RDW Coefficient of Variation % 13.4 % (11.5-15.5); Red Blood Count 4.01 m/uL (4.00-5.20); White Blood Count* 9.00 K/uL (4.50-11.00)
[2025-05-26 10:35] LABS: Lymphocytes Absolute Auto 1.70 K/uL (0.90-2.90); Slide Review Reflex No
== END 2025-05-26 09:04 | disposition home or self-care (01) ==
LOC: WOUND 09:07
PROVIDERS: PCP Physician Assistant; Visit Provider Nurse Practitioner Family
DX: S81.822A Laceration with foreign body, left lower leg, initial encounter (principal); S80.12XA Contusion of left lower leg, initial encounter; W01.198A Fall on same level from slipping, tripping and stumbling with subsequent striking against other object, initial encounter; Y92.821 Forest as the place of occurrence of the external cause; Y93.01 Activity, walking, marching and hiking; L03.116 Cellulitis of left lower limb; N18.30 Chronic kidney disease, stage 3 unspecified; G89.29 Other chronic pain; R19.7 Diarrhea, unspecified
CPT/HCPCS: 36415; 85025; 86140; G0463

== ENCOUNTER 2025-05-26 10:16 | Outpatient (CLI) | payer MEDICARE, SELFPAY ==
--- NOTE | 2025-05-26 11:30 | CRLHL7_ITS ---
For Patients: As a result of the Cures Act, medical imaging exams and procedure reports are released immediately into your electronic medical record. You may view this report before your referring provider. If you have questions, please contact your health care provider. INDICATION: injury to left leg (anterior mid calf), swelling, check for DVT and abscess COMPARISON: None. TECHNIQUE: A compression venous ultrasound exam was performed of the left lower extremity using bailey-scale imaging, color Doppler and spectral Doppler analysis. FINDINGS: Sonographic imaging of the left lower extremity demonstrates normal compressibility and color Doppler venous blood flow within the common femoral vein, deep femoral vein, and the proximal greater saphenous vein. Within the thigh, the femoral vein is patent and compressible. At a lower level, the popliteal and posterior tibial veins also show normal compressibility and color Doppler venous blood flow. Limited imaging of the contralateral groin demonstrates a normal spectral waveform and color Doppler venous blood flow within the right common femoral vein. IMPRESSION: No evidence of deep vein thrombosis within the left lower extremity. No drainable fluid collection or abscess. Dictated by Cristhian Gates MD @ 05/26/2025 11:40:39 AM (Electronically Signed)
== END 2025-05-26 10:17 | disposition home or self-care (01) ==
LOC: US 10:16
PROVIDERS: PCP Physician Assistant; Visit Provider Nurse Practitioner Family
DX: R22.42 Localized swelling, mass and lump, left lower limb (principal); L03.116 Cellulitis of left lower limb; S81.822D Laceration with foreign body, left lower leg, subsequent encounter
CPT/HCPCS: 36415; 85025; 86140; 93971; G0463

== ENCOUNTER 2025-05-30 14:19 | Outpatient (CLI) | payer MEDICARE, SELFPAY | END 2025-05-30 14:20 | disposition home or self-care (01) | LOC: WOUND 14:19 | PROVIDERS: PCP Physician Assistant; Visit Provider Nurse Practitioner Family | DX: S81.822A Laceration with foreign body, left lower leg, initial encounter (principal); G89.29 Other chronic pain; N18.30 Chronic kidney disease, stage 3 unspecified; Z86.19 Personal history of other infectious and parasitic diseases | CPT/HCPCS: 97597 ==

== ENCOUNTER 2025-06-02 10:00 | Outpatient (CLI) | payer MEDICARE, SELFPAY | END 2025-06-02 10:01 | disposition home or self-care (01) | LOC: WOUND 10:00 | PROVIDERS: PCP Physician Assistant; Visit Provider Nurse Practitioner Family | DX: S81.822A Laceration with foreign body, left lower leg, initial encounter (principal); S80.12XA Contusion of left lower leg, initial encounter; Z86.19 Personal history of other infectious and parasitic diseases; G89.29 Other chronic pain | CPT/HCPCS: 11042 ==

== ENCOUNTER 2025-06-06 14:12 | Outpatient (CLI) | payer MEDICARE, SELFPAY | END 2025-06-06 14:13 | disposition home or self-care (01) | LOC: WOUND 14:12 | PROVIDERS: PCP Physician Assistant; Visit Provider Nurse Practitioner Family | DX: S81.822A Laceration with foreign body, left lower leg, initial encounter (principal); S80.12XA Contusion of left lower leg, initial encounter; N18.30 Chronic kidney disease, stage 3 unspecified; G89.29 Other chronic pain; Z86.19 Personal history of other infectious and parasitic diseases; W01.198A Fall on same level from slipping, tripping and stumbling with subsequent striking against other object, initial encounter | CPT/HCPCS: 11042 ==

== ENCOUNTER 2025-06-13 14:08 | Outpatient (CLI) | payer MEDICARE, SELFPAY | END 2025-06-13 14:09 | disposition home or self-care (01) | LOC: WOUND 14:08 | PROVIDERS: PCP Physician Assistant; Visit Provider Nurse Practitioner Family | DX: S81.822A Laceration with foreign body, left lower leg, initial encounter (principal); S80.12XA Contusion of left lower leg, initial encounter; G89.29 Other chronic pain; W01.198A Fall on same level from slipping, tripping and stumbling with subsequent striking against other object, initial encounter | CPT/HCPCS: 11042 ==

== ENCOUNTER 2025-06-20 14:15 | Outpatient (CLI) | payer MEDICARE, SELFPAY | END 2025-06-20 14:16 | disposition home or self-care (01) | LOC: WOUND 14:15 | PROVIDERS: PCP Physician Assistant; Visit Provider Nurse Practitioner Family | DX: S81.822A Laceration with foreign body, left lower leg, initial encounter (principal); G89.29 Other chronic pain; Z86.19 Personal history of other infectious and parasitic diseases; W01.198A Fall on same level from slipping, tripping and stumbling with subsequent striking against other object, initial encounter | CPT/HCPCS: 11042 ==

== ENCOUNTER 2025-06-27 09:01 | Outpatient (CLI) | payer MEDICARE, SELFPAY | END 2025-06-27 09:02 | disposition home or self-care (01) | LOC: WOUND 09:01 | PROVIDERS: PCP Physician Assistant; Visit Provider Nurse Practitioner Family | DX: I87.312 Chronic venous hypertension (idiopathic) with ulcer of left lower extremity (principal); L97.822 Non-pressure chronic ulcer of other part of left lower leg with fat layer exposed; N18.30 Chronic kidney disease, stage 3 unspecified; G89.29 Other chronic pain; Z86.19 Personal history of other infectious and parasitic diseases | CPT/HCPCS: 11042 ==

== ENCOUNTER 2025-07-05 13:59 | Outpatient (CLI) | payer MEDICARE, SELFPAY | END 2025-07-05 14:00 | disposition home or self-care (01) | LOC: WOUND 13:59 | PROVIDERS: PCP Physician Assistant; Visit Provider Nurse Practitioner Family | DX: I87.312 Chronic venous hypertension (idiopathic) with ulcer of left lower extremity (principal); L97.812 Non-pressure chronic ulcer of other part of right lower leg with fat layer exposed; N18.30 Chronic kidney disease, stage 3 unspecified; G89.29 Other chronic pain; Z86.19 Personal history of other infectious and parasitic diseases | CPT/HCPCS: 97597 ==

== ENCOUNTER 2025-07-11 10:30 | Outpatient (CLI) | payer MEDICARE, SELFPAY | END 2025-07-11 10:31 | disposition home or self-care (01) | LOC: WOUND 10:30 | PROVIDERS: PCP Physician Assistant; Visit Provider Nurse Practitioner Family | DX: I87.312 Chronic venous hypertension (idiopathic) with ulcer of left lower extremity (principal); L97.222 Non-pressure chronic ulcer of left calf with fat layer exposed; G89.29 Other chronic pain; N18.30 Chronic kidney disease, stage 3 unspecified; Z86.19 Personal history of other infectious and parasitic diseases | CPT/HCPCS: 11042 ==

== ENCOUNTER 2025-07-18 15:22 | Outpatient (CLI) | payer MEDICARE, SELFPAY | END 2025-07-18 15:23 | disposition home or self-care (01) | LOC: WOUND 15:22 | PROVIDERS: PCP Physician Assistant; Visit Provider Nurse Practitioner Family | DX: I87.312 Chronic venous hypertension (idiopathic) with ulcer of left lower extremity (principal); L97.822 Non-pressure chronic ulcer of other part of left lower leg with fat layer exposed; G89.29 Other chronic pain; Z86.19 Personal history of other infectious and parasitic diseases; N18.30 Chronic kidney disease, stage 3 unspecified | CPT/HCPCS: G0463 ==

== ENCOUNTER 2025-07-26 08:37 | Outpatient (CLI) | payer MEDICARE, SELFPAY | END 2025-07-26 08:38 | disposition home or self-care (01) | LOC: WOUND 08:37 | PROVIDERS: PCP Physician Assistant; Visit Provider Nurse Practitioner Family | DX: I87.312 Chronic venous hypertension (idiopathic) with ulcer of left lower extremity (principal); L97.222 Non-pressure chronic ulcer of left calf with fat layer exposed; G89.29 Other chronic pain; N18.30 Chronic kidney disease, stage 3 unspecified; Z86.19 Personal history of other infectious and parasitic diseases | CPT/HCPCS: 11042 ==

== ENCOUNTER 2025-08-01 13:30 | Outpatient (CLI) | payer MEDICARE, SELFPAY | END 2025-08-01 13:31 | disposition home or self-care (01) | LOC: WOUND 13:30 | PROVIDERS: PCP Physician Assistant; Visit Provider Nurse Practitioner Family | DX: I87.312 Chronic venous hypertension (idiopathic) with ulcer of left lower extremity (principal); L97.222 Non-pressure chronic ulcer of left calf with fat layer exposed; N18.30 Chronic kidney disease, stage 3 unspecified; G89.29 Other chronic pain; Z86.19 Personal history of other infectious and parasitic diseases | CPT/HCPCS: 11042; 87070; G0463 ==

== ENCOUNTER 2025-08-08 15:17 | Outpatient (CLI) | payer MEDICARE, SELFPAY | END 2025-08-08 15:18 | disposition home or self-care (01) | LOC: WOUND 15:17 | PROVIDERS: PCP Physician Assistant; Visit Provider Nurse Practitioner Family | DX: I87.312 Chronic venous hypertension (idiopathic) with ulcer of left lower extremity (principal); L97.221 Non-pressure chronic ulcer of left calf limited to breakdown of skin; N18.30 Chronic kidney disease, stage 3 unspecified; G89.29 Other chronic pain; Z86.19 Personal history of other infectious and parasitic diseases | CPT/HCPCS: G0463 ==